=== PATIENT | female | born 1965 | race African-American/Black ===

== ENCOUNTER 2020-06-16 17:55 | Emergency (ER) | payer MEDICAID ==
[~2020-06-16] VITALS: Ht 157.5 cm; Wt 65.7 kg
[2020-06-16 17:57] VITALS: BP 149/91
[2020-06-16] MEDS ORDERED: SODIUM CHLORIDE 0.9% 1,000 ML IV ONE (19:12)
[2020-06-16] MEDS ORDERED: DIPHENHYDRAMINE 50MG/ML VIAL IV ONE (19:15)
[2020-06-16] MEDS ORDERED: ACETAMINOPHEN 325MG TABLET PO ONE (19:15)
[2020-06-16] MEDS ORDERED: METOCLOPRAMIDE HCL 10MG/2ML VIAL IV ONE (19:15)
== END 2020-06-16 23:06 | disposition home or self-care (01) ==
LOC: ER 17:55
DX: R51 Headache (principal); R42 Dizziness and giddiness; Z90.710 Acquired absence of both cervix and uterus
CPT/HCPCS: 70450; 96361; 96374; 96375; 99284; J1200; J2765; J7030

== ENCOUNTER 2022-07-18 08:14 | Emergency (ER) | payer MEDICAID ==
[~2022-07-18] VITALS: Ht 154.9 cm; Wt 73.0 kg
[2022-07-18] MEDS ORDERED: LORAZEPAM 1MG TABLET PO ONE (08:30)
[2022-07-18 09:14] LABS: BASOPHILS % 1.3 % (0.0-2.0); EOSINOPHILS % 1.1 % (0.0-5.0); HEMATOCRIT. 40.7 % (36.0-48.0); HEMOGLOBIN. 13.5 g/dL (12.0-16.0); LYMPHOCYTES % 46.8 % (20.0-50.0); MEAN CORPUSCULAR HEMOGLOBIN 28.9 pg (28.0-32.0); MEAN CORPUSCULAR VOLUME 86.8 fL (81.0-99.0); MEAN PLATELET VOLUME 6.9 fl (7.4-10.4); NEUTROPHILS % 44.8 % (40.0-76.0); PLATELET 282 x1000/uL (130-400); RED BLOOD CELL COUNT 4.69 mill/uL (4.2-5.4); RED CELL DISTRIBUTION WIDTH 13.5 % (11.6-14.6)
[2022-07-18 09:40] LABS: CHLORIDE 114 mEq/L (98-107)
[2022-07-18 09:51] LABS: ETHANOL BLOOD 174 mg/dL
[2022-07-18 11:28] VITALS: BP 110/79
[2022-07-18 12:31] LABS: ETHANOL BLOOD 117 mg/dL
[2022-07-18] MEDS ORDERED: HYDR-3735 MT (13:13)
== END 2022-07-18 14:38 | disposition home or self-care (01) ==
LOC: ER 08:14
DX: F41.9 Anxiety disorder, unspecified (principal); F41.0 Panic disorder [episodic paroxysmal anxiety]; F10.129 Alcohol abuse with intoxication, unspecified; Y90.6 Blood alcohol level of 120-199 mg/100 ml; I10 Essential (primary) hypertension; Z91.14 Patient's other noncompliance with medication regimen; Z90.710 Acquired absence of both cervix and uterus
CPT/HCPCS: 36415; 71045; 80053; 80320; 83880; 84484; 85025; 93005; 99285; Z7610; G0480